=== PATIENT | male | born 1980 ===

== ENCOUNTER 2021-12-02 04:15 | Emergency (ER) | payer SELFPAY ==
--- NOTE | 2021-12-02 04:28 | Emergency Department Report ---
ED General Adult HPI - General Chief complaint: Psych Stated complaint: SI Time Seen by Provider: 12/02/21 04:24 Source: patient, EMS (Verbal report received from emergency medical services. EMS documentation not available at time of chart dictation ), RN notes reviewed Mode of arrival: Ambulatory Limitations: No Limitations - History of Present Illness Initial comments: This patient is a 41-year-old gentleman, with a history of PTSD and depression, who is a , who recently relocated to [place] from [place]. He is brought to the hospital by emergency medical services with a complaint of painless suicidality. Patient reports feeling depressed. He has no physical pain. He has not attempted to overdose on anything today. He is COVID-19 vaccinated. He denies urinary symptoms. Patient reports numerous psychosocial stressors, including relocation, being alone on his birthday, feeling depressed, and being homeless. He currently takes valproic acid/Depakote. He reports [facility] -: Gradual Severity scale (0 -10): 0 Consistency: constant Improves with: none Worsens with: none Associated Symptoms: denies other symptoms - Related Data Allergies Allergy/AdvReac Type Severity Reaction Status Date / Time No Known Allergies Allergy Unverified 12/02/21 04:24 ED Review of Systems ROS: Stated complaint: SI Other details as noted in HPI Comment: All other systems reviewed and negative Psychiatric: depression, suicidal thoughts ED Past Medical Hx - Past Medical History Previous Medical History?: Yes Hx Psychiatric Treatment: Yes (PTSD,BIPOLAR) - Surgical History Past Surgical History?: No ED Physical Exam - General Limitations: No Limitations General appearance: alert, in no apparent distress - Head Head exam: Present: atraumatic, normocephalic - Eye Eye exam: Present: normal appearance, EOMI. Absent: nystagmus - ENT ENT exam: Present: normal exam, normal orophraynx, mucous membranes moist, normal external ear exam - Neck Neck exam: Present: normal inspection, full ROM. Absent: tenderness, meningismus - Respiratory Respiratory exam: Present: normal lung sounds bilaterally. Absent: respiratory distress, wheezes, rales, rhonchi, stridor, decreased breath sounds - Cardiovascular Cardiovascular Exam: Present: regular rate, normal rhythm, normal heart sounds. Absent: bradycardia, tachycardia, irregular rhythm, systolic murmur, diastolic murmur, rubs, gallop - GI/Abdominal GI/Abdominal exam: Present: soft. Absent: distended, tenderness, guarding, rebound, rigid, pulsatile mass - Rectal Rectal exam: Present: deferred - Extremities Exam Extremities exam: Present: normal inspection, full ROM, other (2+ pulses noted in the bilateral upper extremities. There is no long bony tenderness. The muscular compartments are soft. The pelvis is stable). Absent: pedal edema, calf tenderness - Back Exam Back exam: Present: normal inspection, full ROM. Absent: tenderness, CVA tenderness (R), CVA tenderness (L), paraspinal tenderness, vertebral tenderness - Neurological Exam Neurological exam: Present: alert, oriented X3, normal gait, other (No facial droop. Tongue midline. Extraocular movements intact bilaterally. Facial sensation intact to light touch in V1, V2, V3 distribution bilaterally. 5 and a 5 strength in 4 extremities. Sensation intact to light touch in 4 extremities.). Absent: motor sensory deficit - Psychiatric Psychiatric exam: Present: normal affect, normal mood, suicidal ideation - Skin Skin exam: Present: warm, dry, intact, normal color. Absent: rash ED Course Vital Signs 12/02/21 12/02/21 04:22 05:35 Temperature 98 F Pulse Rate 60 Respiratory 18 18 Rate Blood Pressure 143/59 [Right] O2 Sat by Pulse 97 98 Oximetry - Reevaluation(s) Reevaluation #1: 12/02/21 04:51 Differential diagnosis, including but not limited to: Depression, dysthymia, suicidality, medical clearance for psychiatric placement Assessment and plan: 41-year-old gentleman, who is pleasant, calm and cooperative, awake, alert, oriented, not belligerent and combative, presenting to the ER today with a complaint of painless suicidality. Patient is placed on hold status. Appropriate laboratory studies ordered. Psychiatric consultation requested. I discussed this plan of care with the patient. He articulated understanding. He is agreeable to the plan of care. 12/02/21 05:49 Laboratory studies are unremarkable. Urinalysis, drug screen, and Covid swab pending. The emergency room will follow along with the patient provides the samples. At this point in time, this patient does not appear to have an immediate medical contraindication to psychiatric admission, evaluation, consultation and placement ED Medical Decision Making - Lab Data Result diagrams: 12/02/21 04:38 12/02/21 04:38 Vital Signs 12/02/21 04:22 Temperature 98 F Pulse Rate 60 Respiratory 18 Rate Blood Pressure 143/59 [Right] O2 Sat by Pulse 97 Oximetry Lab Results 12/02/21 12/02/21 12/02/21 Range/Units 04:38 04:38 04:38 WBC 12.0 H (4.5-11.0) K/mm3 RBC 4.50 (3.65-5.03) M/mm3 Hgb 13.7 (11.8-15.2) gm/dl Hct 39.4 (35.5-45.6) % MCV 88 (84-94) fl MCH 30 (28-32) pg MCHC 35 H (32-34) % RDW 15.0 (13.2-15.2) % Plt Count 389 (140-440) K/mm3 Sodium 141 (137-145) mmol/L Potassium 3.9 (3.6-5.0) mmol/L Chloride 105.1 (98-107) mmol/L Carbon Dioxide 23 (22-30) mmol/L Anion Gap 17 mmol/L BUN 15 (9-20) mg/dL Creatinine 0.7 L (0.8-1.3) mg/dL Estimated GFR > 60 ml/min BUN/Creatinine Ratio 21 % Glucose 94 (75-100) mg/dL Calcium 9.2 (8.4-10.2) mg/dL Salicylates < 0.3 L (2.8-20.0) mg/dL Acetaminophen (10.0-30.0) ug/mL Valproic Acid 18.3 L (50-100) ug/mL Plasma/Serum Alcohol (0-0.07) % 12/02/21 12/02/21 Range/Units 04:38 04:38 WBC (4.5-11.0) K/mm3 RBC (3.65-5.03) M/mm3 Hgb (11.8-15.2) gm/dl Hct (35.5-45.6) % MCV (84-94) fl MCH (28-32) pg MCHC (32-34) % RDW (13.2-15.2) % Plt Count (140-440) K/mm3 Sodium (137-145) mmol/L Potassium (3.6-5.0) mmol/L Chloride (98-107) mmol/L Carbon Dioxide (22-30) mmol/L Anion Gap mmol/L BUN (9-20) mg/dL Creatinine (0.8-1.3) mg/dL Estimated GFR ml/min BUN/Creatinine Ratio % Glucose (75-100) mg/dL Calcium (8.4-10.2) mg/dL Salicylates (2.8-20.0) mg/dL Acetaminophen 5.0 L (10.0-30.0) ug/mL Valproic Acid (50-100) ug/mL Plasma/Serum Alcohol < 0.01 (0-0.07) % Critical care attestation.: If time is entered above; I have spent that time in minutes in the direct care of this critically ill patient, excluding procedure time. ED Disposition Clinical Impression: Medical clearance for psychiatric admission, Encounter for behavioral health screening, Encounter for medical screening examination, Depression, History of posttraumatic stress disorder (PTSD), Homeless Disposition: [address] [place] [address] Is pt being admited?: No Does the pt Need Aspirin: No Condition: Good
[2021-12-02 04:59] LABS: Hematocrit 39.4 % (35.5-45.6); Hemoglobin 13.7 gm/dl (11.8-15.2); Mean Corpuscular HGB Conc 35 % (32-34); Mean Corpuscular Volume 88 fl (84-94); Platelet Count 389 K/mm3 (140-440)
[2021-12-02 05:20] LABS: Blood Urea Nitrogen 15 mg/dL (9-20); Calcium 9.2 mg/dL (8.4-10.2); Hemolysis Index 5
[2021-12-02 05:22] LABS: BUN/Creatinine Ratio 21
[2021-12-02 09:47] VITALS: BP 117/72
--- NOTE | 2021-12-02 10:19 | Consultation ---
History of Present Illness - Reason for Consult Consult date: 12/02/21 Reason for consult: depression, SI - History of Present Psychiatric Illness The patient was seen today. He presents to the ER with depression and suicidal thoughts without a plan. The patient says he go depressed over the situation with his kids. He says "I'm absent a lot." The patient denies SI/HI. He says "I only said that to get out of the hotel I was in." The patient says he is a Vet. He says "I have an appointment today and I want to leave and make my appointment. He denies hallucinations of any kind. The patient says he is homeless at present. He says he was diagnosed with bipolar and ptsd. The patient says he takes Latuda and depakote. The denies any illicit drug use, alcohol or nicotine. He says he's been clean from Cocaine for three years. Diagnoses: Bipolar, PTSD Suicide attempts or Self-harm behavior: Denies Prior psychiatric hospitalizations: Yes Substance Abuse history: Cocaine Previous psychiatric medications tried: latuda, depakote Outpatient treatment: Yes PAST MEDICAL HISTORY: None reported Family Psychiatric History: None reported or documented SOCIAL HISTORY Marital Status: Single Living Arrangements: homeless Employment Status: Access to guns/weapons: Denies Education: History of Abuse: none reported Legal History: none reported REVIEW OF SYSTEMS Constitutional: Negative for weight loss ENT: Negative for stridor Respiratory: Negative for cough or hemoptysis All other systems reviewed and are negative MENTAL STATUS EXAMINATION General Appearance and Behavior: Age appropriate, good hygiene, wearing appropriate clothes, cooperative, calm, polite Cooperation: Participating, guarded Psychomotor Behavior: normal Mood: okay Affect and affective range: congruent with mood Thought Process: goal directed Thought Content: None Speech: Normal volume, Regular rate and rhythm, Suicidal Ideation: Denies Homicidal Ideation: Denies Hallucinations: Denies Delusions: None elicited Impulse Control: Limited Insight and Judgment: Poor insight and judgment, Memory: Limited Attention: Preoccupied Orientation: Alert, oriented Assessment and Plan (1) Bipolar Disorder Treatment Plan Continue previously prescribed medications Medical: per primary Disposition: Do not recommend acute psychiatric inpatient treatment Will sign off. Thanks Slitting And Shipping Supervisor to give all necessary outpatient resources. Will sign off. Thanks. Case staffed with Dr. Palmer Medications and Allergies Allergies Allergy/AdvReac Type Severity Reaction Status Date / Time No Known Allergies Allergy Unverified 12/02/21 04:24 Mental Status Exam - Vital signs Last Vital Signs Temp 98.2 F 12/02/21 09:41 Pulse 60 12/02/21 09:41 Resp 18 12/02/21 09:41 BP 117/72 12/02/21 09:41 Pulse Ox 98 12/02/21 09:41 Results Result Diagrams: 12/02/21 04:38 12/02/21 04:38 Abnormal lab results 12/02/21 12/02/21 12/02/21 Range/Units 04:38 04:38 04:38 WBC 12.0 H (4.5-11.0) K/mm3 MCHC 35 H (32-34) % Creatinine 0.7 L (0.8-1.3) mg/dL Salicylates < 0.3 L (2.8-20.0) mg/dL Acetaminophen (10.0-30.0) ug/mL Valproic Acid 18.3 L (50-100) ug/mL 12/02/21 Range/Units 04:38 WBC (4.5-11.0) K/mm3 MCHC (32-34) % Creatinine (0.8-1.3) mg/dL Salicylates (2.8-20.0) mg/dL Acetaminophen 5.0 L (10.0-30.0) ug/mL Valproic Acid (50-100) ug/mL All other labs normal.
--- NOTE | 2021-12-02 12:36 | Emergency Department Report ---
Blank Doc - Documentation Documentation: Chart reviewed: 41-year-old male Medically cleared by mental health. Will be discharged with outpatient resources
== END 2021-12-02 14:54 | disposition home or self-care (01) ==
LOC: ED 04:15
DX: Z13.30 Encounter for screening examination for mental health and behavioral disorders, unspecified (principal); Z00.00 Encounter for general adult medical examination without abnormal findings; F32.9 Major depressive disorder, single episode, unspecified; F43.12 Post-traumatic stress disorder, chronic; Z20.822 Contact with and (suspected) exposure to COVID-19
CPT/HCPCS: 36415; 80048; 80164; 85027; 99284; U0003; 80320; G0480